=== PATIENT | male | born 1970 | race African-American/Black ===

== ENCOUNTER 2021-01-04 07:01 | Emergency (ER) | payer MEDICARE ==
[~2021-01-04] VITALS: Ht 185.4 cm; Wt 130.8 kg
[2021-01-04 07:06] VITALS: BP 195/98
== END 2021-01-04 07:44 | disposition home or self-care (01) ==
LOC: ED 07:30
DX: I10 Essential (primary) hypertension (principal); Z76.0 Encounter for issue of repeat prescription; E11.9 Type 2 diabetes mellitus without complications; Z88.0 Allergy status to penicillin
CPT/HCPCS: 99281